=== PATIENT | male | born 1995 | race Caucasian/White ===

== ENCOUNTER 2020-01-18 11:48 | Emergency (ER) | payer OTHER ==
[~2020-01-18] VITALS: Ht 177.8 cm; Wt 58.1 kg
[2020-01-18 11:54] VITALS: BP 141/87
--- NOTE | 2020-01-18 12:06 | NUR ---
PT AMBULATED TO BED 3
--- NOTE | 2020-01-18 12:10 | NUR ---
BIB self from home with c/o rectal bleeding, sometimes dark and sometimes bright red blood. PMH from infancy of a trach and g-tube, none recent, NKDA A, A, O x4, in NAD, VVS Resp even and unlabored, HOB elevated Awaiting evaluation by MD Will continue to monitor
--- NOTE | 2020-01-18 12:17 | NUR ---
MD at bedside to evaluate patient
--- NOTE | 2020-01-18 12:35 | NUR ---
Patient medically cleared for discharge by MD. Advised to follow up with PCP or return to ED if symptoms return or worsen. Given copy of discharge instructions and script. Patient verbalized understanding of instructions and prescription. Gait steady, ID band removed. All belongings taken with patient.
== END 2020-01-18 12:30 | disposition home or self-care (01) ==
LOC: MED 11:48
DX: K60.2 Anal fissure, unspecified (principal); K59.00 Constipation, unspecified; Z88.5 Allergy status to narcotic agent
CPT/HCPCS: 81002; 99282

== ENCOUNTER 2023-10-11 19:55 | Emergency (ER) | payer OTHER ==
[~2023-10-11] VITALS: Ht 177.8 cm; Wt 63.5 kg
[2023-10-11 20:02] VITALS: BP 148/92; PULSE 78; RESP 16; TEMP 97.9; O2SAT 100
[2023-10-11 21:56] VITALS: BP 148/92; PULSE 78; RESP 16; TEMP 97.9; O2SAT 100
[2023-10-11] MEDS: KETOROLAC 30 MG/ML VIAL IM ONE (22:42)
[2023-10-11] MEDS ORDERED: ACET-8905 PO (22:53)
[2023-10-11] MEDS ORDERED: NAPR-337 PO (22:53)
[2023-10-11] MEDS ORDERED: ACET-10509 PO (22:54)
== END 2023-10-11 22:59 | disposition home or self-care (01) ==
LOC: MED 19:55
DX: S52.122A Displaced fracture of head of left radius, initial encounter for closed fracture (principal); Z86.69 Personal history of other diseases of the nervous system and sense organs; Z79.899 Other long term (current) drug therapy; Z88.5 Allergy status to narcotic agent; W18.39XA Other fall on same level, initial encounter; Y92.89 Other specified places as the place of occurrence of the external cause; Y93.89 Activity, other specified; Y99.8 Other external cause status
CPT/HCPCS: 29105; 73080; 96372; 99283; J1885